=== PATIENT | female | born 1990 | race Two or more races ===

== ENCOUNTER 2024-10-28 11:36 | Outpatient (AMB) | payer MEDICAID, SELFPAY ==
[2024-10-28 12:06] VITALS: BP 107/66; PULSE 71; RESP 14; TEMP 36.9; O2SAT 99; BMI 31.6
--- NOTE | 2024-10-28 12:06 | OBCLNT_ITS ---
Vital Signs 10/28/24 12:06 Height 1.57 m Height Method Stated Weight 78.528 kg Weight Measurement Method Standing Scale BMI 31.6 BP 107/66 Blood Pressure Source Automatic Cuff Blood Pressure Location Left Upper Arm Position Sitting Respiration 14 Pulse 71 Pulse Source Monitor Temp 98.4 F Temp Source Oral Pulse Oximetry (%) 99 Oxygen Delivery Method Room Air Allergies/Home Meds Allergies & Medications Allergies No Known Allergies Allergy (Verified 10/28/24 12:07) Medication Reconciliation No Known Home Medications 10/28/24 [History Confirmed 10/28/24] Intake Visit Data Collection New Patient or Established: New Patient (never been to [facility]) Reason for Visit:: Transfer of care from [facility], follow-up at 20 weeks and 6 days gestation Seen by Clinical Staff ONLY (RN/MA): No Visitor Services Associate Required: No Do You Feel Safe at Home: Yes Authorities Contacted: N/A PCP or OBGYN visit in last 3 months: Yes Hx Now: Yes Are you currently on any form of Control: No Last menstrual period: 06/04/24 Pain Present Currently: No Pain Scale Used: Nieto-Connell/Numerical Pain scale:: 0 Smoking Status Smoking Status: Never smoker Questionnaires Covid-19 Vaccine Questionnaire Has patient been vacinated for Covid-19 Have you been vacinated for Covid-19: Yes PHQ-9 PHQ-2 Over the last 2 weeks, how often have you been bothered by any of the following problems? 1. Little interest or pleasure in doing things: not at all 2. Feeling down, depressed, or hopeless: not at all Total score: 0 PHQ-9 3. Trouble falling or staying asleep, or sleeping too much: Not at all 4. Feeling tired or having little energy: Not at all 5. Poor appetite or overeating: Not at all 6. Feeling bad about yourself - or that you are a failure or have let yourself or your family down: Not at all 7. Trouble concentrating on things, such as reading the newspaper or watching television: Not at all 8. Moving or speaking so slowly that other people could have noticed? - Or the opposite - being so fidgety or restless that you have been moving around a lot more than usual: not at all 9. Thoughts that you would be better off or of hurting yourself in some way: Not at all Total score: 0 Source: Developed by Drs. Rancho Huertas, Ileana Monreal, Bipin Torres and colleagues, with an educational laverne from [employer]. Depression screen completed yes Social History Living Situation History Marital Status: Lives With: Family Housing: House Tobacco History Smoking Status: Never smoker Second Hand Smoke Exposure: No Alcohol History Alcohol Intake: Never Domestic Abuse History Do You Feel Safe at Home: Yes Past Medical History Past Medical History Have you ever been diagnosed with any of the following: Neurological Problems Cerebrovascular Accident (CVA): No Transient Ischemic Attacks (TIA): No Dementia: No Alzheimer's Disease: No Brain Tumor: No Seizures: No Guillain-Tacoma Syndrome: No Cardiology Problems Myocardial Infarction: No Cardiac Arrhythmia: No Atrial Fibrillation: No Angina: No Hypertension: No Respiratory Problems Chronic Obstructive Pulmonary Disease (COPD): No Asthma: No Bronchitis: No Tuberculosis: No Hx Cough: No Cough: No Wheezing: No Chest Deformities: No Smoking: No Smoking Cessation Counseling: No Smoking Exposure: No Tobacco Use: No Clubbing: No Stomache/Intestinal Problems Liver Cancer: No Hepatitis: No Cirrhosis: No Pancreatic Cancer: No Pancreatitis: No Genital/Urinary Problems Chronic Kidney Disease: No Renal Disease: No Kidney Stones: No Reproductive Problems Breast Cancer: No Endometriosis: No Fibroids: No Genital Herpes: No Gonorrhea: No Pelvic Inflammatory Disease: No Polycystic Ovarian Syndrome: No Previous Pregnancies: Yes Syphilis: No Uterine Prolapse: No Musculoskeletal Problems Muscular Dystrophy: No Myasthenia Gravis: No Marfan's Syndrome: No Bone Cancer: No Arthritis: No Head,Eye,Nose,Throat Problems Cataracts: No Glaucoma: No Blind: No Retinal Detachment: No Endocrine Problems Diabetes Mellitus Type 1: No Diabetes Mellitus Type 2: No Thyroid Cancer: No Parathyroid Disease: No Pituitary Disease: No Systemic Lupus Erythematosus: No Syndrome of Inappropriate Antidiuretic Hormone: No Adrenal Disease: No Graves' Disease: No Blood Problems Anemia: No Leukemia: No Hemophilia: No Thalassemia: No Sickle Cell Disease: No Clotting Problems: No Psychologic Problems Schizophrenia: No Recreational Drug Use: No Bipolar Disorder: No Depression: No Anxiety: No Behavior Problems: No Other Problems Hospitalization: No Autoimmune Disease: No Down Syndrome: No Autism: No Developmental Delay: No Falls: No Blood Transfusions: No Blood Transfusion Reaction: No Anesthesia Reactions: No Surgical History Angioplasty: No Appendectomy: No Bariatric Surgery: No Breast Surgery: No Cancer Surgery: No Carotid Endarterectomy: No History of Present Illness HPI Narrative Gardenia Dumas, a 34-year-old at 20 weeks and 6 days gestation, presents for transfer of care from [facility]. Her last menstrual period was on 06-04-2024, with an estimated due date of 03-11-2025. She reports a history of regular monthly menses lasting 28 days. Her first positive test was on December 26, 2024. The patient's obstetrical history includes two full-term deliveries: a vaginal delivery at 41 weeks and 3 days in 2019, and a classical section in 2021 due to a transverse lie with premature rupture of membranes. She also reports one previous . Currently, Gardenia states that everything is going well so far with her . She is taking vitamins as prescribed. Gardenia mentions that her last ultrasound was performed in August at 12-13 weeks gestation. At that time, there was a concern about a low-lying placenta, and she was advised to avoid intercourse. She is awaiting a detailed anatomy ultrasound to reassess the placental position and evaluate the previous scar. The patient reports no specific complaints or symptoms at this time. She has relocated from [place] to [place] due to the previous clinic's inability to accommodate more patients. Surgical History - Classical section in 2021 Medications and Supplements - vitamins Social History - Living Situation: Lives in [place] OB Initial Visit OB Flowsheet OB Flowsheet Initial Weight: Not Recorded Date -?-?-?-?-?-?-?-?-?-?-?-?- EGA Weight Edema CTX Effacement BP Fundal ht Pres Dilation Effacement Station Visit Note Alb Glu FHR Mov 10/28/24 -?-?-?-?-?-?-?-?-?-?-?-?- 20w 4d 78.528 kg 107/66 34-y ear-old at 20 weeks and 6 days gestation, presents for transfer of care from [facility]. - Ultrasound (09/04/2024): - First trimester gestation - Single gestational sac - Gestational age: 12 weeks and 6 days . Plan: - Order anatomy ultrasound at [facility] in [place] between 20-22 weeks gestation - Assess anatomy and previous ce sarean section scar - Evaluate placental position - Review lab results from previous clini c once patient brings records - Schedule glucose tolerance test for di abetes screening at next appointment - Discuss delivery options: - Inform patient that current hospital does not permit - If vaginal delivery desired, plan to continue care until 35-36 weeks, then transfer to [facility] - Advise on sexual activity based on [facility] ultrasound results: - If placenta remains low, avoid inter course - If placental position resolves, valentin r for sexual activity - Continue vitamins 145 active Menstrual History Menstrual reliability: definite Flow: normal Menstrual regularity: regular Monthly: Yes Age at menarche: 9 On control pills at conception: No Associated symptoms (LMP): Denies amenorrhea, nausea, vomiting, fatigue, breast tenderness, urinary frequency, irritability, bloating or other OB History : 4 Hx Total # of Abortions (Spontaneous & Elective): 1 # of Living Children: 2 Infection History & Risk Evaluation History of STDs: none Genetic Screening & History Genetic Screening/Teratology Counseling - Includes patient, baby's father, or anyone in either family with: 1. Patient's age 35 years or older as of estimated date of delivery: No 2. Thalassemia (Qatari, Kittitian, Mediterranean, or Background); MCV less than 80: No 3. Neural Tube Defect (Meningomyelocele, Spina Bifida, or Anencephaly): No 4. Congenital Heart Defect: No 5. Down Syndrome: No 6. Kaden-Sachs (Ashkenazi Yazdanism, Cajun, Mauritian Anguillan): No 7. Taniya Disease (Ashkenazi Yazdanism): No 8. Familial Dysautonomia (Ashkenazi Yazdanism): No 9. Sickle Cell Disease or Trait (): No 10. Hemophilia or other blood disorders: No 11. Muscular Dystrophy: No 12. Cystic Fibrosis: No 13. Newport's Chorea: No 14. Mental Retardation/Autism: No 15. Other inherited genetic or chromosomal disorder: No 16. Maternal Metabolic Disorder (EG,TYPE 1 Diabetes, PKU): No 17. Patient or baby's father had a child with defects not listed above: No 18. Recurrent loss or a stillbirth: No 19. Medications (including supplements, vitamins, herbs or otc drugs)/illicit/recreational drugs/alcohol since last menstrual period: No 20. Any other: No Infection History 1. Live with someone with TB or exposed to TB: No 2. Rash or viral illness since last menstrual period: No 3. Hepatitis B,C: No Other (see comments) Source: [employer] Review of Systems Review of Systems Systems Reviewed: All systems reviewed, normal except as documented Constitutional Constitutional: Denies fatigue Gastrointestinal Gastrointestinal: Denies bloating, Denies nausea and Denies vomiting Genitourinary Genitourinary: Denies amenorrhea and Denies urinary frequency Psychiatric Psychiatric: Denies irritability Endocrine Endocrine: Denies fatigue Exam General Limitations: no limitations General Appearance: alert, in no apparent distress, comfortable, cooperative, healthy appearing, well developed and well groomed Head Head exam: atraumatic, normocephalic and normal inspection Chest Chest inspection: Present normal inspection and symmetric chest wall rise Abdominal Abdominal exam: Present soft and normal bowel sounds Psych Psychiatric exam: Present normal affect and normal mood Skin Skin exam: Present warm, dry, intact and normal color Assessment & Plan Diagnosis / Problem List (1) Maternal care for low transverse scar from previous delivery: Status: Acute (2) Supervision of high risk , unspecified, second trimester: Status: Acute Plan Gardenia Madseno, 34-year-old at 20 weeks 6 days gestation, presenting for transfer of care from [facility] with SUN 03-11-2025. , 20 weeks 6 days gestation Assessment: Patient is a 34-year-old at 20 weeks 6 days gestation based on LMP of 06-04-2024, with SUN confirmed as 03-11-2025. History of one prior classical section in 2021 and one vaginal delivery at 41 weeks 3 days in 2019. First trimester ultrasound on 09-04-2024 showed single gestational sac measuring 12 weeks 6 days. Current heart rate is 145 bpm, which is within normal range. Patient reports is progressing well. Plan: - Order anatomy ultrasound at [facility] between 20-22 weeks gestation - Assess anatomy and previous section scar - Evaluate placental position - Review lab results from previous clinic once patient brings records - Schedule glucose tolerance test for diabetes screening at next appointment - Discuss delivery options: - Inform patient that current hospital does not permit - If vaginal delivery desired, plan to continue care until 35-36 weeks, then transfer to [facility] - Advise on sexual activity based on upcoming ultrasound results: - If placenta remains low, avoid intercourse - If placental position resolves, clear for sexual activity - Continue vitamins Additional Plan Follow Up: 2 Weeks Office Procedures OB Clinic LOC & Office Proc's Nursing/Assessment Patient Status: Initial/New Patient OB Clinic Nursing Assessment: Medication Reconciliation, Update PMH in EMR and Vital Signs OB Clinic Coordination of Care: Complex Care and Chronic Disease 1-5, Consent,records obtained, informed consent, Education Simp Pt/Fam, Lab and Imaging orders, Results/Orders obtained and Staff clarify orders Special Needs: Heart tones New Patient Charge New Patient Point Assignment: 1134 Bedside Ultrasounds US Transabdominal >14 weeks at bedside: Yes
== END 2024-10-28 12:18 | disposition home or self-care (01) ==
LOC: HODSOBC 11:36
PROVIDERS: Supervising Provider Obstetrics & Gynecology; Visit Provider Obstetrics & Gynecology
DX: O09.292 Supervision of pregnancy with other poor reproductive or obstetric history, second trimester (principal); O34.211 Maternal care for low transverse scar from previous cesarean delivery; Z3A.20 20 weeks gestation of pregnancy; Z87.59 Personal history of other complications of pregnancy, childbirth and the puerperium
CPT/HCPCS: 76805; 99214; G0463

== ENCOUNTER 2024-11-26 13:01 | Outpatient (AMB) | payer MEDICAID, SELFPAY ==
[2024-11-26 13:22] VITALS: BP 107/61; PULSE 58; RESP 14; TEMP 36.5; O2SAT 98; BMI 32.4
--- NOTE | 2024-11-26 13:22 | OBCLNT_ITS ---
Vital Signs 11/26/24 13:22 Height 1.57 m Height Method Stated Weight 80.002 kg Weight Measurement Method Standing Scale BMI 32.4 BP 107/61 Blood Pressure Source Automatic Cuff Blood Pressure Location Right Upper Arm Position Sitting Respiration 14 Pulse 58 L Pulse Source Monitor Temp 97.7 F Temp Source Oral Pulse Oximetry (%) 98 Oxygen Delivery Method Room Air Allergies/Home Meds Allergies & Medications Allergies No Known Allergies Allergy (Verified 11/26/24 13:23) Medication Reconciliation clotrimazole 1 % vaginal cream (Gyne-Lotrimin 7) 1 appful vaginal QHS 7 days #45 grams 11/26/24 [Rx] Intake Visit Data Collection New Patient or Established: Established Patient (seen at [facility] within 3 years) Reason for Visit:: CARE Seen by Clinical Staff ONLY (RN/MA): No Refrigeration Engine Operator Required: No Do You Feel Safe at Home: Yes Authorities Contacted: N/A PCP or OBGYN visit in last 3 months: Yes Hx Now: Yes Are you currently on any form of Control: No Pain Present Currently: No Pain Scale Used: Nieto-Connell/Numerical Pain scale:: 0 Smoking Status Smoking Status: Never smoker Questionnaires Covid-19 Vaccine Questionnaire Has patient been vacinated for Covid-19 Have you been vacinated for Covid-19: Yes PHQ-9 PHQ-2 Over the last 2 weeks, how often have you been bothered by any of the following problems? 1. Little interest or pleasure in doing things: not at all 2. Feeling down, depressed, or hopeless: not at all Total score: 0 PHQ-9 3. Trouble falling or staying asleep, or sleeping too much: Not at all 4. Feeling tired or having little energy: Not at all 5. Poor appetite or overeating: Not at all 6. Feeling bad about yourself - or that you are a failure or have let yourself or your family down: Not at all 7. Trouble concentrating on things, such as reading the newspaper or watching television: Not at all 8. Moving or speaking so slowly that other people could have noticed? - Or the opposite - being so fidgety or restless that you have been moving around a lot more than usual: not at all 9. Thoughts that you would be better off or of hurting yourself in some way: Not at all Total score: 0 Source: Developed by Drs. Rancho Huertas, Ileana Monreal, Bipin Torres and colleagues, with an educational laverne from [employer]. 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 - Patient transferred care from [facility]. - This is her second visit to this clinic; first visit was at 20 weeks and 6 days gestation. - Patient reports experiencing itchiness in the genital area. - No visible signs of infection noted by patient - No vaginal discharge reported - Patient has not tried any nepj-pix-cfeeici creams for relief - Patient denies any other complaints or concerns. No contractions/ LOF/VB, reports good FM No MARS/VC/RUQ/Epig pain Care OB Visit Log OB Flowsheet Initial Weight: Not Recorded Date -?-?-?-?-?-?-?-?-?-?-?-?- EGA Weight BP Alb Glu CTX Pres Fundal ht FHR Mov Dilation Station Effacement Hx Notes Visit Note 10/28/24 -?-?-?-?-?-?-?-?-?-?-?-?- 20w 4d 78.528 kg 107/66 145 active 34-year-old at 20 weeks and 6 days gestation, presents for transfer of care from [facility]. - Ultrasound (09/04/2024): - First trimester gestation - Single gestational sac - Gestational age: 12 weeks and 6 days . Plan: - Order anatomy ultrasound at [facility] between 20-22 weeks gestation - Assess anatomy and previous ce sarean section scar - Evaluate placental position - Review lab results from previous clini c once patient brings records - Schedule glucose tolerance test for di abetes screening at next appointment - Discuss delivery options: - Inform patient that current hospital does not permit - If vaginal delivery desired, plan to continue care until 35-36 weeks, then transfer to [facility] - Advise on sexual activity based on [facility] [place] results: - If placenta remains low, avoid inter course - If placental position resolves, valentin desai for sexual activity - Continue vitamins 11/26/24 -?-?-?-?-?-?-?-?-?-?-?-?- 24w 5d 80.002 kg 107/61 at 24 weeks and 6 days gestation, presents for routine care. Reports pruritus in genital area without discharge or OTC treatment. FM+. Transferred care from [place], this is second visit. Awaiting MFM ultrasound. FHT 145 bpm. Plan: Glucose tolerance test (fasting) [facility]ifungal cream to [facility] [place] Await MFM ultrasound results FU in 4 weeks precautions SUN Calculator Estimated Delivery Date Method Current WG Current Estimate 03/13/25 Ultrasound #1 25w 1d Other Estimates 03/11/25 LMP (Certain) 25w 3d Exam General General Appearance: alert, in no apparent distress and healthy appearing Head Head exam: atraumatic Neck Neck exam: Present normal inspection and trachea midline Chest Chest inspection: Present normal inspection and symmetric chest wall rise External exam: Present normal external exam; Absent tenderness Neuro Neurological exam: Present oriented X3 Psych Psychiatric exam: Present normal affect and normal mood Office Procedures OB Clinic LOC & Office Proc's Nursing/Assessment Patient Status: Established Patient OB Clinic Nursing Assessment: Medication Reconciliation, Update PMH in EMR and Vital Signs OB Clinic Coordination of Care: Complex Care and Chronic Disease 1-5, Consent,records obtained, informed consent, Education Simp Pt/Fam, Lab and Imaging orders, Results/Orders obtained and Staff clarify orders Special Needs: Heart tones Established Patient Charge Established Patient Point Assignment: 135 Established Patient Point Charge: EP Level 4 (120-155) Assessment & Plan Diagnosis / Problem List (1) Supervision of high risk , unspecified, second trimester: Status: Acute (2) Maternal care for low transverse scar from previous delivery: Status: Acute Plan Problem List - , 24 weeks and 6 days gestation - History of section - Pruritus of genital region Assessment - Intrauterine at 24 weeks and 6 days gestation - 4, para 2012 - History of previous section - heart rate 145 bpm, within normal limits - Patient reports itchiness in genital area without signs of infection or discharge - Maternal serum screening completed in August 2020 - Anatomy ultrasound ordered at previous appointment - Awaiting MFM ultrasound results Plan - Schedule glucose tolerance test (patient to fast before test) - Await MFM ultrasound results from [facility] - Prescribe antifungal cream for perineal itching, [facility] - Follow up visit in 4 weeks - Provide patient with copies of lab results Educated the patient on labor signs, including regular contractions, lower back pain, and changes in vaginal discharge. Advised avoiding heavy lifting and getting adequate rest. Instructed to contact the office immediately if any signs occur. Discussed the importance of a balanced diet rich in folic acid, iron, and calcium, and provided a list of recommended and to-avoid foods. Emphasized avoiding high-sugar foods to reduce gestational diabetes risk. Encouraged hydration and frequent, small meals for energy..
== END 2024-11-26 13:29 | disposition home or self-care (01) ==
LOC: HODSOBC 13:01
PROVIDERS: Supervising Provider Obstetrics & Gynecology; Visit Provider Obstetrics & Gynecology
DX: O09.292 Supervision of pregnancy with other poor reproductive or obstetric history, second trimester (principal); Z3A.24 24 weeks gestation of pregnancy; O34.211 Maternal care for low transverse scar from previous cesarean delivery; O26.892 Other specified pregnancy related conditions, second trimester; L29.3 Anogenital pruritus, unspecified
CPT/HCPCS: 99214; G0463

== ENCOUNTER 2024-12-27 11:06 | Outpatient (AMB) | payer MEDICAID, SELFPAY ==
[2024-12-27 11:16] VITALS: BP 110/66; PULSE 62; RESP 17; TEMP 36.4; O2SAT 98; BMI 33.3
--- NOTE | 2024-12-27 11:16 | OBCLNT_ITS ---
Vital Signs 12/27/24 11:16 Height 1.57 m Height Method Measured Weight 82.157 kg Weight Measurement Method Standing Scale BMI 33.3 BP 110/66 Blood Pressure Source Automatic Cuff Blood Pressure Location Right Upper Arm Position Sitting Respiration 17 Pulse 62 Pulse Source Monitor Temp 97.5 F Temp Source Temporal Artery Scan Pulse Oximetry (%) 98 Oxygen Delivery Method Room Air Allergies/Home Meds Allergies & Medications Allergies No Known Allergies Allergy (Verified 01/09/25 13:58) Medication Reconciliation vits no.126-ferrous fum 28 mg iron-folic acid 800 mcg tablet (Classic ) tab PO 12/27/24 [History Confirmed 01/09/25] blood sugar diagnostic (Blood Glucose Test strips) #10 ea 01/31/25 [Rx] blood-glucose meter #1 ea 01/31/25 [Rx] lancets #100 ea 01/31/25 [Rx] Intake Visit Data Collection New Patient or Established: Established Patient (seen at [facility] within 3 years) Reason for Visit:: OBC Seen by Clinical Staff ONLY (RN/MA): No Supervisor Braiding Required: No Do You Feel Safe at Home: Yes Authorities Contacted: N/A PCP or OBGYN visit in last 3 months: Yes Hx Now: Yes Are you currently on any form of Control: No Pain Present Currently: No Pain Scale Used: Nieto-Connell/Numerical Pain scale:: 0 Smoking Status Smoking Status: Never smoker Questionnaires Covid-19 Vaccine Questionnaire Has patient been vacinated for Covid-19 Have you been vacinated for Covid-19: No PHQ-9 PHQ-2 Over the last 2 weeks, how often have you been bothered by any of the following problems? 1. Little interest or pleasure in doing things: not at all 2. Feeling down, depressed, or hopeless: not at all Total score: 0 PHQ-9 3. Trouble falling or staying asleep, or sleeping too much: Not at all 4. Feeling tired or having little energy: Not at all 5. Poor appetite or overeating: Not at all 6. Feeling bad about yourself - or that you are a failure or have let yourself or your family down: Not at all 7. Trouble concentrating on things, such as reading the newspaper or watching television: Not at all 8. Moving or speaking so slowly that other people could have noticed? - Or the opposite - being so fidgety or restless that you have been moving around a lot more than usual: not at all 9. Thoughts that you would be better off or of hurting yourself in some way: Not at all Total score: 0 If you checked off any problems, how difficult have these problems made it for you to do your work, take care of things at home, or get along with other people?: not difficult at all Source: Developed by Drs. Rancho Huertas, Ileana Monreal, Bipin Torres and colleagues, with an educational laverne from [employer]. 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. - Ultrasound (09/04/2024): - First trimester gestation - Single gestational sac - Gestational age: 12 weeks and 6 days . Plan: - Order anatomy ultrasound at [facility] between 20-22 weeks gestation - Assess anatomy and previous ce sarean section scar - Evaluate placental position - Review lab results from previous clini c once patient brings records - Schedule glucose tolerance test for di abetes screening at next appointment - Discuss delivery options: - Inform patient that current hospital does not permit - If vaginal delivery desired, plan to continue care until 35-36 weeks, then transfer to [place] or [place] - Advise on sexual activity based on [facility] [place] [place] results: - If placenta remains low, avoid inter course - If placental position resolves, valentin desai for sexual activity - Continue vitamins 11/26/24 -?-?-?-?-?-?-?-?-?-?-?-?- 24w 5d 80.002 kg 107/61 at 24 weeks and 6 days gestation, presents for routine care. Reports pruritus in genital area without discharge or OTC treatment. FM+. Transferred care from [place], this is second visit. Awaiting MFM ultrasound. FHT 145 bpm. Plan: Glucose tolerance test (fasting) Antifungal cream to [facility] Await MFM ultrasound results FU in 4 weeks precautions 12/27/24 -?-?-?-?-?-?-?-?-?-?-?-?- 29w 1d 82.157 kg 110/66 occasional cephalic 29 145 at 29w1d, transferred from [place]. Recent vaginitis treated with clotrimazole. Labs: Hgb 12.4, Hct 39.1, platelets 145. Abnormal 1h GTT at 155. MFM US pending. Plan: Schedule 3h GTT, monitor platelets, await MFM results. SUN Calculator Estimated Delivery Date Method Current WG Current Estimate 03/13/25 Ultrasound #1 34w 3d Other Estimates 03/11/25 LMP (Certain) 34w 5d Office Procedures OB Clinic LOC & Office Proc's Nursing/Assessment Patient Status: Established Patient OB Clinic Nursing Assessment: Medication Reconciliation, Update PMH in EMR and Vital Signs OB Clinic Coordination of Care: Complex Care and Chronic Disease 1-5, Education Complex Pt/Fam, Consent,records obtained, informed consent, Lab and Imaging orders and Staff clarify orders Special Needs: Heart tones Established Patient Charge Established Patient Point Assignment: 135 Established Patient Point Charge: EP Level 4 (120-155) Assessment & Plan Diagnosis / Problem List (1) Gestational diabetes: Status: Acute (2) Supervision of high risk , unspecified, second trimester: Status: Acute (3) Maternal care for low transverse scar from previous delivery: Status: Acute
== END 2024-12-27 11:30 | disposition home or self-care (01) ==
LOC: HODSOBC 11:06
PROVIDERS: PCP Obstetrics & Gynecology; Referring Provider Obstetrics & Gynecology; Supervising Provider Obstetrics & Gynecology; Visit Provider Obstetrics & Gynecology
DX: O09.293 Supervision of pregnancy with other poor reproductive or obstetric history, third trimester (principal); O34.211 Maternal care for low transverse scar from previous cesarean delivery; O09.893 Supervision of other high risk pregnancies, third trimester; O24.419 Gestational diabetes mellitus in pregnancy, unspecified control; Z3A.29 29 weeks gestation of pregnancy
CPT/HCPCS: 99214; G0463

== ENCOUNTER 2025-01-09 13:55 | Outpatient (AMB) | payer MEDICAID, SELFPAY ==
--- NOTE | 2025-01-09 13:58 | OBCLNT_ITS ---
Allergies/Home Meds Allergies & Medications Allergies No Known Allergies Allergy (Verified 01/09/25 13:58) Medication Reconciliation vits no.126-ferrous fum 28 mg iron-folic acid 800 mcg tablet (Classic ) tab PO 12/27/24 [History Confirmed 01/09/25] Intake Visit Data Collection New Patient or Established: Established Patient (seen at [facility] within 3 years) Reason for Visit:: LAB RESULTS / TELE MED Consent obtained for Telemed Visit: Yes Seen by Clinical Staff ONLY (RN/MA): No Motion Picture Operator Required: No Do You Feel Safe at Home: Yes Authorities Contacted: N/A PCP or OBGYN visit in last 3 months: Yes Date of Last PCP or OBGYN visit: 11/26/24 Hx Now: Yes Are you currently on any form of Control: No Pain Present Currently: No Pain Scale Used: Nieto-Connell/Numerical Pain scale:: 0 Smoking Status Smoking Status: Never smoker For Telemed visit only Telemed Video/Phone Visit: Yes Verbal consent obtained for Telemed visit?: Yes Verbal Consent witness name: BENJAMIN TODD Telemed Video/Phone visit w/Clinical Staff: 21-30 min Questionnaires Covid-19 Vaccine Questionnaire Has patient been vacinated for Covid-19 Have you been vacinated for Covid-19: No PHQ-9 PHQ-2 Over the last 2 weeks, how often have you been bothered by any of the following problems? 1. Little interest or pleasure in doing things: not at all 2. Feeling down, depressed, or hopeless: not at all Total score: 0 PHQ-9 3. Trouble falling or staying asleep, or sleeping too much: Not at all 4. Feeling tired or having little energy: Not at all 5. Poor appetite or overeating: Not at all 6. Feeling bad about yourself - or that you are a failure or have let yourself or your family down: Not at all 7. Trouble concentrating on things, such as reading the newspaper or watching television: Not at all 8. Moving or speaking so slowly that other people could have noticed? - Or the opposite - being so fidgety or restless that you have been moving around a lot more than usual: not at all 9. Thoughts that you would be better off or of hurting yourself in some way: Not at all Total score: 0 If you checked off any problems, how difficult have these problems made it for you to do your work, take care of things at home, or get along with other people?: not difficult at all Source: Developed by Drs. Rancho Huertas, Ileana Monreal, Bipin Torres and colleagues, with an educational lvaerne from [employer]. 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 She had a previous glucose test with a result of 155 mg/dL, which was considered high. Following this abnormal result, she was instructed to complete a 3-hour glucose tolerance test. The patient reports that she completed the 3-hour glucose tolerance test at [facility] on the previous Monday. She confirms adherence to the recommended follow-up testing as instructed during her last visit. No specific symptoms or complaints related to the glucose abnormality were mentioned during this interaction. She has a history of elevated glucose level of 155 mg/dL on a previous test. The patient is currently taking Metformin 200 mg. Care OB Visit Log OB Flowsheet Initial Weight: Not Recorded Date -?-?-?-?-?-?-?-?-?-?-?-?- EGA Weight BP Alb Glu CTX Pres Fundal ht FHR Mov Dilation Station Effacement Hx Notes Visit Note 10/28/24 -?-?-?-?-?-?-?-?-?-?-?-?- 20w 4d 78.528 kg 107/66 145 active 34-year-old at 20 weeks and 6 days gestation, presents for transfer of care from [facility]. - Ultrasound (09/04/2024): - First trimester gestation - Single gestational sac - Gestational age: 12 weeks and 6 days . Plan: - Order anatomy ultrasound at [facility] between 20-22 weeks gestation - Assess anatomy and previous ce sarean section scar - Evaluate placental position - Review lab results from previous clini c once patient brings records - Schedule glucose tolerance test for di abetes screening at next appointment - Discuss delivery options: - Inform patient that current hospital does not permit - If vaginal delivery desired, plan to continue care until 35-36 weeks, then transfer to [facility] or [place] - Advise on sexual activity based on [facility] ultrasound results: - If placenta remains low, avoid inter course - If placental position resolves, valentin r for sexual activity - Continue vitamins 11/26/24 -?-?-?-?-?-?-?-?-?-?-?-?- 24w 5d 80.002 kg 107/61 at 24 weeks and 6 days gestation, presents for routine care. Reports pruritus in genital area without discharge or OTC treatment. FM+. Transferred care from [place], this is second visit. Awaiting MFM ultrasound. FHT 145 bpm. Plan: Glucose tolerance test (fasting) Antifungal cream to [facility] Await MFM ultrasound results FU in 4 weeks precautions SUN Calculator Estimated Delivery Date Method Current WG Current Estimate 03/13/25 Ultrasound #1 31w 4d Other Estimates 03/11/25 LMP (Certain) 31w 6d Exam Narrative Physical exam: Televisit, no exam Office Procedures OB Clinic LOC & Office Proc's Nursing/Assessment Patient Status: Established Patient OB Clinic Nursing Assessment: Medication Reconciliation, Update PMH in EMR and Vital Signs OB Clinic Coordination of Care: Complex Care and Chronic Disease 1-5, Consent,records obtained, informed consent, Education Simp Pt/Fam, Results/Orders obtained and Staff clarify orders Established Patient Charge Established Patient Point Assignment: 90 Telehealth If patient is seen using Teleconference methods, complete New/Est section, but DO NOT jt points only jt the correct Telemed visit type Telemed Phone/Video with patient at home & Dr,PA,POUND KEEPER: Yes Assessment & Plan Diagnosis / Problem List (1) Supervision of high risk , unspecified, second trimester: Status: Acute (2) Maternal care for low transverse scar from previous delivery: Status: Acute Plan Abnormal Glucose Test: - Initial glucose test result of 155 mg/dL, which is elevated. - Follow-up 3-hour glucose tolerance test completed at [facility] on previous Monday. - Results of 3-hour test not yet available in system. - Last result on file from December 10. Plan: - Contact [facility] to obtain results of the 3-hour glucose tolerance test. - Call patient back to discuss results once obtained.
== END 2025-01-09 14:03 | disposition home or self-care (01) ==
LOC: HODSOBC 13:55
PROVIDERS: PCP Obstetrics & Gynecology; Referring Provider Obstetrics & Gynecology; Supervising Provider Obstetrics & Gynecology; Visit Provider Obstetrics & Gynecology
DX: O09.293 Supervision of pregnancy with other poor reproductive or obstetric history, third trimester (principal); O34.211 Maternal care for low transverse scar from previous cesarean delivery; O09.893 Supervision of other high risk pregnancies, third trimester; O99.810 Abnormal glucose complicating pregnancy; Z3A.31 31 weeks gestation of pregnancy
CPT/HCPCS: 99212; G0463

== ENCOUNTER 2025-02-07 09:50 | Outpatient (AMB) | payer MEDICAID, SELFPAY ==
[2025-02-07 10:00] VITALS: BP 110/68; PULSE 69; RESP 17; TEMP 36.2; O2SAT 98; BMI 33.5
--- NOTE | 2025-02-07 10:00 | OBCLNT_ITS ---
Vital Signs 02/07/25 10:00 Height 1.57 m Height Method Measured Weight 82.611 kg Weight Measurement Method Standing Scale BMI 33.5 BP 110/68 Blood Pressure Source Automatic Cuff Blood Pressure Location Right Upper Arm Position Sitting Respiration 17 Pulse 69 Pulse Source Monitor Temp 97.2 F Temp Source Temporal Artery Scan Pulse Oximetry (%) 98 Oxygen Delivery Method Room Air Allergies/Home Meds Allergies & Medications Allergies No Known Allergies Allergy (Verified 02/07/25 10:01) Medication Reconciliation vits no.126-ferrous fum 28 mg iron-folic acid 800 mcg tablet (Classic ) tab PO 12/27/24 [History Confirmed 02/07/25] blood sugar diagnostic (Blood Glucose Test strips) #10 ea 01/31/25 [Rx Confirmed 02/07/25] blood-glucose meter #1 ea 01/31/25 [Rx Confirmed 02/07/25] lancets #100 ea 01/31/25 [Rx Confirmed 02/07/25] Intake Visit Data Collection New Patient or Established: Established Patient (seen at [facility] within 3 years) Reason for Visit:: OBC\GBS Consent obtained for Telemed Visit: No Seen by Clinical Staff ONLY (RN/MA): No Pacs Specialist Required: No Do You Feel Safe at Home: Yes Authorities Contacted: N/A PCP or OBGYN visit in last 3 months: Yes Date of Last PCP or OBGYN visit: 12/27/24 Hx Now: Yes Are you currently on any form of Control: No Pain Present Currently: No Pain Scale Used: Nieto-Connell/Numerical Pain scale:: 0 Smoking Status Smoking Status: Never smoker Questionnaires Covid-19 Vaccine Questionnaire Has patient been vacinated for Covid-19 Have you been vacinated for Covid-19: Yes PHQ-9 PHQ-2 Over the last 2 weeks, how often have you been bothered by any of the following problems? 1. Little interest or pleasure in doing things: not at all PHQ-9 8. Moving or speaking so slowly that other people could have noticed? - Or the opposite - being so fidgety or restless that you have been moving around a lot more than usual: not at all Source: Developed by Drs. Rancho Huertas, Ileana oMnreal, Bpiin Torres and colleagues, with an educational laverne from [employer]. 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 - Ultrasound (09/04/2024): - First trimester gestation - Single gestational sac - Gestational age: 12 weeks and 6 days . Plan: - Order anatomy ultrasound at [facility] between 20-22 weeks gestation - Assess anatomy and previous ce sarean section scar - Evaluate placental position - Review lab results from previous clini c once patient brings records - Schedule glucose tolerance test for di abetes screening at next appointment - Discuss delivery options: - Inform patient that current hospital does not permit - If vaginal delivery desired, plan to continue care until 35-36 weeks, then transfer to [facility] or [place] - Advise on sexual activity based on [facility] ultrasound results: - If placenta remains low, avoid inter course - If placental position resolves, valentin r for sexual activity - Continue vitamins 11/26/24 -?-?-?-?-?-?-?-?-?-?-?-?- 24w 5d 80.002 kg 107/61 at 24 weeks and 6 days gestation, presents for routine care. Reports pruritus in genital area without discharge or OTC treatment. FM+. Transferred care from [place], this is second visit. Awaiting [facility] ultrasound. FHT 145 bpm. Plan: Glucose tolerance test (fasting) Antifungal cream to [facility] Await MFM ultrasound results FU in 4 weeks precautions 12/27/24 -?-?-?-?-?-?-?-?-?-?--?-?- 29w 1d 82.157 kg 110/66 occasional cephalic 29 145 at 29w1d, transferred from [place]. Recent vaginitis treated with clotrimazole. Labs: Hgb 12.4, Hct 39.1, platelets 145. Abnormal 1h GTT at 155. MFM US pending. Plan: Schedule 3h GTT, monitor platelets, await MFM results. 02/07/25 -?-?-?-?-?-?-?-?-?-?-?-?- 35w 1d 82.611 kg 110/68 absent breech 35 145 active at 35w1d with diet-controlled GDM, breech fetus, prior C/S, improved energy and wt loss; FHR WNL, placenta now anterior and clear of OS per 32w MFM. Plan: C/S scheduled 03/06 @ 12:30, GBS swab done, RX for glucose supplies, weekly visits, review glucose logs next visit, pt exploring transfer to [place]. SUN Calculator Estimated Delivery Date Method Current WG Current Estimate 03/13/25 Ultrasound #1 35w 1d Other Estimates 03/11/25 LMP (Certain) 35w 3d Expected Delivery Route/Plan Repeat scheduled for March 06, 2025 at 12:30 PM Specific Issue/Plans Laboratory, Imaging, and Diagnostic Test Results - [facility] Ultrasound (01/18/2025): - Gestational age: 32 weeks 0 days - Estimated weight: 1874 grams - Amniotic fluid: Normal - anatomy: Grossly normal - Placenta: Anterior, no evidence of previa - presentation: Shaun breech - Uterus and adnexa: Normal Notes Visit Date: 02/07/25 Last Updated by: Randal Denis MD Problem List - , 35 weeks and 1 day - Gestational diabetes mellitus - Breech presentation - Previous delivery - 4, para 2 Office Procedures OB Clinic LOC & Office Proc's Nursing/Assessment Patient Status: Established Patient OB Clinic Nursing Assessment: Medication Reconciliation, Update PMH in EMR and Vital Signs OB Clinic Coordination of Care: Complex Care and Chronic Disease 1-5, Consent,records obtained, informed consent, Education Simp Pt/Fam and Staff clarify orders Established Patient Charge Established Patient Point Assignment: 85 Established Patient Point Charge: EP Level 3 (80-115)
== END 2025-02-07 10:22 | disposition home or self-care (01) ==
LOC: HODSOBC 09:50
PROVIDERS: Supervising Provider Obstetrics & Gynecology; Visit Provider Obstetrics & Gynecology
DX: O09.893 Supervision of other high risk pregnancies, third trimester (principal); O24.410 Gestational diabetes mellitus in pregnancy, diet controlled; O32.1XX0 Maternal care for breech presentation, not applicable or unspecified; O09.293 Supervision of pregnancy with other poor reproductive or obstetric history, third trimester; O34.219 Maternal care for unspecified type scar from previous cesarean delivery; Z3A.35 35 weeks gestation of pregnancy; Z36.85 Encounter for antenatal screening for Streptococcus B
CPT/HCPCS: 99213; G0463

== ENCOUNTER 2025-02-14 11:00 | Outpatient (AMB) | payer MEDICAID, SELFPAY ==
--- NOTE | 2025-02-14 11:19 | OBCLNT_ITS ---
Vital Signs 02/14/25 11:20 Height 1.57 m Height Method Measured Weight 82.157 kg Weight Measurement Method Standing Scale BMI 33.3 BP 101/62 Blood Pressure Source Automatic Cuff Blood Pressure Location Right Upper Arm Position Sitting Respiration 17 Pulse 81 Pulse Source Monitor Temp 98.2 F Temp Source Temporal Artery Scan Pulse Oximetry (%) 97 Oxygen Delivery Method Room Air Allergies/Home Meds Allergies & Medications Allergies No Known Allergies Allergy (Verified 03/26/25 09:14) Medication Reconciliation vits no.126-ferrous fum 28 mg iron-folic acid 800 mcg tablet (Classic ) 1 tab PO QDAY 12/27/24 [History Confirmed 03/26/25] blood-glucose meter #1 ea 01/31/25 [Rx Confirmed 03/26/25] blood sugar diagnostic (Blood Glucose Test strips) #100 ea 02/11/25 [Rx Con firmed 03/26/25] lancets 21 gauge #100 ea 02/11/25 [Rx Confirmed 03/26/25] Intake Visit Data Collection New Patient or Established: Established Patient (seen at [facility] within 3 years) Reason for Visit:: OBC Consent obtained for Telemed Visit: No Seen by Clinical Staff ONLY (RN/MA): No Data Support Analyst Required: No Do You Feel Safe at Home: Yes Authorities Contacted: N/A PCP or OBGYN visit in last 3 months: Yes Date of Last PCP or OBGYN visit: 02/07/25 Hx Now: Yes Are you currently on any form of Control: No Pain Present Currently: No Pain Scale Used: Nieto-Connell/Numerical Pain scale:: 0 Smoking Status Smoking Status: Never smoker Questionnaires Covid-19 Vaccine Questionnaire Has patient been vacinated for Covid-19 Have you been vacinated for Covid-19: Yes PHQ-9 PHQ-2 Over the last 2 weeks, how often have you been bothered by any of the following problems? 1. Little interest or pleasure in doing things: not at all PHQ-9 3. Trouble falling or staying asleep, or sleeping too much: Not at all 4. Feeling tired or having little energy: Not at all 5. Poor appetite or overeating: Not at all 6. Feeling bad about yourself - or that you are a failure or have let yourself or your family down: Not at all 7. Trouble concentrating on things, such as reading the newspaper or watching television: Not at all 8. Moving or speaking so slowly that other people could have noticed? - Or the opposite - being so fidgety or restless that you have been moving around a lot more than usual: not at all 9. Thoughts that you would be better off or of hurting yourself in some way: Not at all If you checked off any problems, how difficult have these problems made it for you to do your work, take care of things at home, or get along with other people?: not difficult at all Source: Developed by Drs. Rancho Huertas, Ileana Monreal, Bipin Torres and colleagues, with an educational laverne from [email or web address]. 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 - Ultrasound (09/04/2024): - First trimester gestation - Single gestational sac - Gestational age: 12 weeks and 6 days . Plan: - Order anatomy ultrasound at [facility] between 20-22 weeks gestation - Assess anatomy and previous ce sarean section scar - Evaluate placental position - Review lab results from previous clini c once patient brings records - Schedule glucose tolerance test for di abetes screening at next appointment - Discuss delivery options: - Inform patient that current hospital does not permit - If vaginal delivery desired, plan to continue care until 35-36 weeks, then transfer to [facility] or [place] - Advise on sexual activity based on [facility] oming ultrasound results: - If placenta remains low, avoid inter course - If placental position resolves, valentin desai for sexual activity - Continue vitamins 11/26/24 -?-?-?-?-?-?-?-?-?-?-?-?- 24w 5d 80.002 kg 107/61 at 24 weeks and 6 days gestation, presents for routine care. Reports pruritus in genital area without discharge or OTC treatment. FM+. Transferred care from [place], this is second visit. Awaiting MFM ultrasound. FHT 145 bpm. Plan: Glucose tolerance test (fasting) Antifungal cream to [facility] Await MFM ultrasound results FU in 4 weeks precautions 12/27/24 -?-?-?-?-?-?-?-?-?-?-?-?- 29w 1d 82.157 kg 110/66 occasional cephalic 29 145 at 29w1d, transferred from [place]. Recent vaginitis treated with clotrimazole. Labs: Hgb 12.4, Hct 39.1, platelets 145. Abnormal 1h GTT at 155. MFM US pending. Plan: Schedule 3h GTT, monitor platelets, await MFM results. 02/07/25 -?-?-?-?-?-?-?-?-?-?-?-?- 35w 1d 82.611 kg 110/68 absent breech 35 145 active at 35w1d with diet-controlled GDM, breech fetus, prior C/S, improved energy and wt loss; FHR WNL, placenta now anterior and clear of OS per 32w MFM. Plan: C/S scheduled 03/06 @ 12:30, GBS swab done, RX for glucose supplies, weekly visits, review glucose logs next visit, pt exploring transfer to [place]. 02/14/25 -?-?-?-?-?-?-?-?-?-?-?-?- 36w 1d 82.157 kg 101/62 02/26/25 -?-?-?-?-?-?-?-?-?-?-?-?- 37w 6d 83.234 kg 110/68 absent breech 38 154 active The patient appears to be progressing normally in her with no reported complications or conc erns. - Scheduled for repeat on March 06, 2025 at 39 weeks gestation - Patient to check in at 10:00 AM, surge ry scheduled for 12:30 PM - NPO after midnight the night before quintero rgery - Preoperative procedures: change into g own, area cleaning, blood work - to be performed by Dr. Denis - Sutures will be absorbable, placed ins marianna the skin with edges joined by glue - Tape to be kept on incision site for 1 0 days, then removed by physician - Ljxg-cb-[id number] contact with baby possibl e after delivery, either with mother or father - Two-hour recovery period post-surgery before visitors allowed - Baby to room-in with mother if no comp lications arise SUN Calculator Estimated Delivery Date Method Current WG Current Estimate 03/13/25 Ultrasound #1 45w 5d Other Estimates 03/11/25 LMP (Certain) 46w 0d Expected Delivery Route/Plan Repeat scheduled for March 06, 2025 at 12:30 PM Specific Issue/Plans Laboratory, Imaging, and Diagnostic Test Results - [facility] Ultrasound (01/18/2025): - Gestational age: 32 weeks 0 days - Estimated weight: 1874 grams - Amniotic fluid: Normal - anatomy: Grossly normal - Placenta: Anterior, no evidence of previa - presentation: Shaun breech - Uterus and adnexa: Normal Notes Visit Date: 02/07/25 Last Updated by: Randal Denis MD Problem List - , 35 weeks and 1 day - Gestational diabetes mellitus - Breech presentation - Previous delivery - 4, para 2 Assessment & Plan Diagnosis / Problem List (1) Gestational diabetes: Status: Acute (2) Maternal care for low transverse scar from previous delivery: Status: Acute (3) Supervision of high risk , unspecified, third trimester: Status: Acute Plan Problem List - , 23 weeks and 6 days gestation - Previous delivery - Rh-negative blood type - Intermittent nausea and vomiting Assessment 23 weeks and 6 days gestation with history of previous section presenting for routine visit. One-hour glucose tolerance test result of 107 mg/dL is normal, ruling out gestational diabetes. Patient reports intermittent nausea and vomiting related to food intake. heart rate of 168 bpm is within normal limits. Patient reports active movement with no concerning symptoms. Patient is employed at [employer] and due date is August 13 with planned delivery at 39 weeks (August 06 or later). Rhogam administration due at 28 weeks gestation. Plan - Schedule anatomy and placenta screening ultrasound with Daniel Pizano at [facility] (patient to call for appointment) - Rhogam shot at 28 weeks (4 weeks from current visit) - Schedule section for any weekday after August 06 (39 weeks gestation), approximately one week before August 13 due date - Provide work excuse note - patient can return to work briefly after Chong break (July 21) then be placed off work - Continue aspirin for 4 more weeks - Book section date in May when scheduling opens 1. Progress Reviewed gestational age (23 weeks 6 days), growth, and heart rate (168 bpm, normal). Planned frequent visits (every 2 weeks until 36 weeks, then weekly). 2. Instructed patient to monitor movements and report decreases immediately. 3. Testing Counseled on routine third-trimester labs per guidelines. Discussed potential need for ultrasound or monitoring based on risk factors (anatomy and placenta screening ultrasound scheduled). 4. Preeclampsia Precaution Educated on preeclampsia signs: severe headache, vision changes, right upper quadrant pain, sudden swelling. Advised urgent reporting of symptoms and discussed blood pressure monitoring if high risk. 5. Labor Precautions Reviewed labor signs: regular contractions, pelvic pressure, back pain, bleeding, or fluid leakage. Instructed to seek immediate care for these symptoms. 6. Lifestyle and Delivery Preparation Reinforced vitamins, nutrition, and safe activity. Discussed plan (repeat scheduled for 39 weeks, August 06 or after), pain management, and . Advised on labor preparation (e.g., hospital bag) and expectations. 7. Psychosocial Support Assessed emotional well-being and offered resources for mental health or parenting support.
[2025-02-14 11:20] VITALS: BP 101/62; PULSE 81; RESP 17; TEMP 36.8; O2SAT 97; BMI 33.3
== END 2025-02-14 11:51 | disposition home or self-care (01) ==
LOC: HODSOBC 11:00
PROVIDERS: Supervising Provider Obstetrics & Gynecology; Visit Provider Obstetrics & Gynecology
DX: O09.293 Supervision of pregnancy with other poor reproductive or obstetric history, third trimester (principal); O34.211 Maternal care for low transverse scar from previous cesarean delivery; O09.893 Supervision of other high risk pregnancies, third trimester; O24.410 Gestational diabetes mellitus in pregnancy, diet controlled; Z3A.36 36 weeks gestation of pregnancy; Z67.91 Unspecified blood type, Rh negative
CPT/HCPCS: 99214; G0463

== ENCOUNTER 2025-02-26 08:36 | Outpatient (AMB) | payer MEDICAID, SELFPAY ==
[2025-02-26 08:49] VITALS: BP 110/68; PULSE 14; RESP 64; TEMP 36.6; O2SAT 99; BMI 33.7
--- NOTE | 2025-02-26 08:49 | OBCLNT_ITS ---
Vital Signs 02/26/25 08:49 Height 1.57 m Height Method Stated Weight 83.234 kg Weight Measurement Method Standing Scale BMI 33.7 BP 110/68 Blood Pressure Source Automatic Cuff Blood Pressure Location Left Upper Arm Position Sitting Respiration 64 H Pulse 14 L Pulse Source Monitor Temp 98 F Temp Source Oral Pulse Oximetry (%) 99 Oxygen Delivery Method Room Air Allergies/Home Meds Allergies & Medications Allergies No Known Allergies Allergy (Verified 02/26/25 08:50) Medication Reconciliation vits no.126-ferrous fum 28 mg iron-folic acid 800 mcg tablet (Classic ) tab PO 12/27/24 [History Confirmed 02/26/25] blood-glucose meter #1 ea 01/31/25 [Rx Confirmed 02/26/25] blood sugar diagnostic (Blood Glucose Test strips) #100 ea 02/11/25 [Rx Confirmed 02/26/25] lancets 21 gauge #100 ea 02/11/25 [Rx Confirmed 02/26/25] Intake Visit Data Collection New Patient or Established: Established Patient (seen at [facility] within 3 years) Reason for Visit:: CARE Seen by Clinical Staff ONLY (RN/MA): No Physical Testing Supervisor Required: No Do You Feel Safe at Home: Yes Authorities Contacted: N/A PCP or OBGYN visit in last 3 months: Yes Hx Now: Yes Are you currently on any form of Control: No Pain Present Currently: No Pain Scale Used: Nieto-Connell/Numerical Pain scale:: 0 Smoking Status Smoking Status: Never smoker Questionnaires Covid-19 Vaccine Questionnaire Has patient been vacinated for Covid-19 Have you been vacinated for Covid-19: Yes PHQ-9 PHQ-2 Over the last 2 weeks, how often have you been bothered by any of the following problems? 1. Little interest or pleasure in doing things: not at all 2. Feeling down, depressed, or hopeless: not at all Total score: 0 PHQ-9 3. Trouble falling or staying asleep, or sleeping too much: Not at all 4. Feeling tired or having little energy: Not at all 5. Poor appetite or overeating: Not at all 6. Feeling bad about yourself - or that you are a failure or have let yourself or your family down: Not at all 7. Trouble concentrating on things, such as reading the newspaper or watching television: Not at all 8. Moving or speaking so slowly that other people could have noticed? - Or the opposite - being so fidgety or restless that you have been moving around a lot more than usual: not at all 9. Thoughts that you would be better off or of hurting yourself in some wa y: Not at all Total score: 0 Source: Developed by Drs. Rancho Huertas, Ileana Monreal, Bipin Torres and colleagues, with an educational laverne from [employer]. 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 - Ultrasound (09/04/2024): - First trimester gestation - Single gestational sac - Gestational age: 12 weeks and 6 days . Plan: - Order anatomy ultrasound at [facility] between 20-22 weeks gestation - Assess anatomy and previous ce sarean section scar - Evaluate placental position - Review lab results from previous clini c once patient brings records - Schedule glucose tolerance test for di abetes screening at next appointment - Discuss delivery options: - Inform patient that current hospital does not permit - If vaginal delivery desired, plan to continue care until 35-36 weeks, then transfer to [facility] or [place] - Advise on sexual activity based on [facility] oming ultrasound results: - If placenta remains low, avoid inter course - If placental position resolves, valentin desai for sexual activity - Continue vitamins 11/26/24 -?-?-?-?-?-?-?-?-?-?-?-?- 24w 5d 80.002 kg 107/61 at 24 weeks and 6 days gestation, presents for routine care. Reports pruritus in genital area without discharge or OTC treatment. FM+. Transferred care from [place], this is second visit. Awaiting MFM ultrasound. FHT 145 bpm. Plan: Glucose tolerance test (fasting) Antifungal cream to [facility] Await MFM ultrasound results FU in 4 weeks precautions 12/27/24 -?-?-?-?-?-?-?-?-?-?-?-?- 29w 1d 82.157 kg 110/66 occasional cephalic 29 145 at 29w1d, transferred from [place]. Recent vaginitis treated with clotrimazole. Labs: Hgb 12.4, Hct 39.1, platelets 145. Abnormal 1h GTT at 155. MFM US pending. Plan: Schedule 3h GTT, monitor platelets, await MFM results. 02/07/25 -?-?-?-?-?-?-?-?-?-?-?-?- 35w 1d 82.611 kg 110/68 absent breech 35 145 active at 35w1d with diet-controlled GDM, breech fetus, prior C/S, improved energy and wt loss; FHR WNL, placenta now anterior and clear of OS per 32w MFM. Plan: C/S scheduled 03/06 @ 12:30, GBS swab done, RX for glucose supplies, weekly visits, review glucose logs next visit, pt exploring transfer to [place]. 02/26/25 -?-?-?-?-?-?-?-?-?-?-?-?- 37w 6d 83.234 kg 110/68 absent breech 38 154 active The patient appears to be progressing normally in her with no reported complications or concerns. - Scheduled for repeat on March 06, 2025 at 39 weeks gestation - Patient to check in at 10:00 AM, surge ry scheduled for 12:30 PM - NPO after midnight the night before quintero nahid - Preoperative procedures: change into g own, area cleaning, blood work - to be performed by Dr. Denis - Sutures will be absorbable, placed ins marianna the skin with edges joined by glue - Tape to be kept on incision site for 1 0 days, then removed by physician - Qlsw-rm-jjsd contact with baby possibl e after delivery, either with mother or father - Two-hour recovery period post-surgery before visitors allowed - Baby to room-in with mother if no comp lications arise SUN Calculator Estimated Delivery Date Method Current WG Current Estimate 03/13/25 Ultrasound #1 38w 0d Other Estimates 03/11/25 LMP (Certain) 38w 2d Expected Delivery Route/Plan Repeat scheduled for March 06, 2025 at 12:30 PM Specific Issue/Plans Laboratory, Imaging, and Diagnostic Test Results - [facility] Ultrasound (01/18/2025): - Gestational age: 32 weeks 0 days - Estimated weight: 1874 grams - Amniotic fluid: Normal - anatomy: Grossly normal - Placenta: Anterior, no evidence of previa - presentation: Shaun breech - Uterus and adnexa: Normal Notes Visit Date: 02/07/25 Last Updated by: Randal Denis MD Problem List - , 35 weeks and 1 day - Gestational diabetes mellitus - Breech presentation - Previous delivery - 4, para 2 Office Procedures OB Clinic LOC & Office Proc's Nursing/Assessment Patient Status: Established Patient OB Clinic Nursing Assessment: Medication Reconciliation, Update PMH in EMR and Vital Signs OB Clinic Coordination of Care: Complex Care and Chronic Disease 1-5, Consent,records obtained, informed consent, Education Simp Pt/Fam, Lab and Imaging orders, Results/Orders obtained and Staff clarify orders Special Needs: Heart tones Established Patient Charge Established Patient Point Assignment: 135 Established Patient Point Charge: EP Level 4 (120-155) Assessment & Plan Diagnosis / Problem List (1) Gestational diabetes: Status: Acute (2) Maternal care for low transverse scar from previous delivery: Status: Acute
== END 2025-02-26 09:19 | disposition home or self-care (01) ==
LOC: HODSOBC 08:36
PROVIDERS: Supervising Provider Obstetrics & Gynecology; Visit Provider Obstetrics & Gynecology
DX: O09.893 Supervision of other high risk pregnancies, third trimester (principal); O24.419 Gestational diabetes mellitus in pregnancy, unspecified control; O09.293 Supervision of pregnancy with other poor reproductive or obstetric history, third trimester; O34.211 Maternal care for low transverse scar from previous cesarean delivery; Z3A.37 37 weeks gestation of pregnancy
CPT/HCPCS: 99214; G0463

== ENCOUNTER 2025-03-06 10:30 | Inpatient (IN) | payer MEDICAID, SELFPAY ==
[2025-03-06] VITALS (14 sets, daily range): BP systolic 100–118; BP diastolic 47–66; PULSE 51–72; RESP 12–20; TEMP 36.5–36.9; O2SAT 97–98; BMI 33.6
[2025-03-06] MEDS: RINGERS LACTATED 1000 ML 1,000 ML 100 ML IV (11:00)
[2025-03-06 11:45] LABS: Basophils # (Auto) 0.0 Thou/mm3 (0.0-0.2); Basophils % (Auto) 0 % (0-2.5); Eosinophils # (Auto) 0.0 Thou/mm3 (0.0-0.5); Eosinophils % (Auto) 1 % (0-10); Hematocrit 36.9 % (36.0-46.0); Hemoglobin 12.5 g/dL (12.0-16.0); Immature Granulocytes Auto 0.02 Thou/mm3 (0.00-0.00); Lymphocytes # (Auto) 1.2 Thou/mm3 (1.0-4.8); Lymphocytes % (Auto) 20 % (10-50); Mean Corpuscular HGB Conc 33.9 g/dl (31.0-37.0); Mean Corpuscular Hemoglobin 31.4 pg (25.0-35.0); Mean Corpuscular Volume 93 fL (80-100); Monocytes # (Auto) 0.4 Thou/mm3 (0.0-0.8); Monocytes % (Auto) 6 % (0-12); Neutrophils # (Auto) 4.4 Thou/mm3 (1.8-7.7); Neutrophils % (Auto) 73 % (37-80); Nucleated Red Blood Cell # 0.00 Thou/mm3 (0.00-0.00); Nucleated Red Blood Cell % 0 /100 WBC (0); Platelet Count 124 Thou/mm3 (140-440); RDW Standard Deviation 51.4 fL (36.4-46.3); Red Blood Count 3.98 Miln/mm3 (4.00-5.20); White Blood Count 6.0 Thou/mm3 (3.6-11.0)
--- NOTE | 2025-03-06 11:56 | PD.LDHP ---
Documentation for date of: 03/06/25 OB Labor/Induct. HPI History of Present Illness Chief complaint: Repeat : 4 Para: 2 Term pregnancies: 2 Living children: 2 History of Abortions: Spontaneous and Elective: 1 History of Vaginal deliveries: 1 Date of last menstrual period: 06/04/24 SUN: 03/11/25 Gestational Age (weeks): 39 Gestational Age (days): 2 Gestational age based on last menstrual period: 39 History of present illness: Gardenia Dumas is a 34-year-old presenting for a repeat low transverse section at 39 weeks and 0 days gestation. She has a history of one previous section and transferred care from [facility]. The patient's was dated using ultrasound on September 04, 2024, which placed her at 12 weeks and 6 days gestation. During her , she had an abnormal one-hour glucose tolerance test, followed by 2 out of 4 abnormal results on her 3-hour glucose test. She has been managed with diet control only for gestational diabetes. The patient is GBS negative. Gardenia reports no specific complaints or concerns at this time. She had considered transferring back to [facility], but they were not accepting patients. All initial labs have been reviewed and scanned into her record. She has an obstetric history of A0 L1. Her current is at 39 weeks 0 days gestation. 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 Labs Labs: Positive: Rubella Titre, Negative: RPR, Hepatitis B, HIV, Chlamydia, Gonorrhea and Group Beta Strep and Unknown: Herpes Type 1, Herpes Type 2 and Covid-19 Meds Home Medications and Allergies Home Medications ?Medication ?Instructions ?Recorded ?Confirmed ?Type vits no.126-ferrous fum 1 tab PO QDAY 12/27/24 03/06/25 History 28 mg iron-folic acid 800 mcg tablet (Classic ) Allergies Allergy/AdvReac Type Severity Reaction Status Date / Time No Known Allergies Allergy Verified 03/06/25 11:42 OB Exam Physical Exam Vital signs: Pulse BP 54 L 113/61 03/06/25 10:57 03/06/25 10:57 Constitutional Constitutional: no acute distress Routine HEENT Exam Head: Present normocephalic and atraumatic Eye: Present EOMI and PERRL ENT: Present mucous membranes moist Routine Neck Exam Neck: Present supple and trachea midline Routine Cardiovascular Exam Cardiovascular: Present RRR Routine Abdominal Exam Abdominal: Present soft and normoactive bowel sounds Detailed Labor and Delivery Exam Dilation (cm): 0 Baseline heart rate: 145 monitor accelerations: 15x15 monitor decelerations: None terminal carman variability: Average (6-10) Routine Extremities Exam Extremities: Present full ROM Routine Skin Exam Skin: Present intact, dry and warm Routine Neurological Exam Neurological: Present alert, oriented X3 and CN II-XII intact Routine Psychiatric Exam Psychiatric: Present normal affect and normal thought process OB Results Labs 03/06/25 11:20 Labs: Short CBC 03/06/25 Range/Units 11:20 WBC 6.0 (3.6-11.0) Thou/mm3 Hgb 12.5 (12.0-16.0) g/dL Hct 36.9 (36.0-46.0) % Plt Count 124 L (140-440) Thou/mm3 OB Assessment & Plan Assessment and Plan (1) Maternal care for low transverse scar from previous delivery: Status: Acute Assessment and plan: Repeat Section: - 34-year-old at 39 weeks 0 days gestation presenting for scheduled repeat low transverse section. - History of one previous section with dated by ultrasound. - GBS negative status confirmed. Plan: - Admit to inpatient status for repeat low transverse section. - Establish IV access and initiate Lactated Ringer's solution at 125 mL/hour. - Obtain pre-operative labs: ? Complete blood count (CBC) ? Type and screen ? RPR - Initiate continuous maternal monitoring prior to surgery. - Administer pre-operative medications: ? Cefazolin 2 grams IV prior to surgery start - Verify and obtain signature on consent forms. - Scheduled procedure time: 12:30. (2) Gestational diabetes: Status: Acute Assessment and plan: Gestational Diabetes: - Abnormal one-hour glucose tolerance test with 2 out of 4 abnormal values on three-hour glucose tolerance test. - Currently managed by diet control only. Plan: - Continue current management with diet control. - Monitor blood glucose levels during admission. (3) delivery delivered: Status: Acute
[2025-03-06] MEDS: METOCLOPRAMIDE INJ 5 MG/ML VIAL 2 ML 10 MG IVP (12:21)
[2025-03-06] MEDS: FAMOTIDINE INJ 10 MG/ML VIAL 2 ML 20 MG IV (12:21)
[2025-03-06] MEDS: ceFAZolin/D5W 2 GM IV 2 GM/100 ML BAG IV (12:21)
[2025-03-06 12:25] LABS: Syphilis Nonreactive (Nonreactive)
[2025-03-06] MEDS: OXYTOCIN in NS 20 units 20 UNIT/1,000 ML BAG 125 UNIT IV ×2 (13:58→22:04)
--- NOTE | 2025-03-06 17:34 | ESOP_ITS ---
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 Identity was confirmed by double identifiers and she was placed on the operating table. Spinal anesthesia was administered and she was positioned in the supine position. The abdomen and perineum were prepped in the usual sterile fashion and a Dye catheter was placed to continuous drainage. Sterile drapes were applied. The incision site was tested for adequacy of anesthesia. A Pfannenstiel skin incision was made with a scalpel and carried to the s ubcutaneous fat up to the rectus fascia. The rectus fascia was incised on either side of the midline and the incisions were extended bilaterally. The fascia was gently dissected off the ventral surface of the rectus muscle both superiorly and inferiorly. The rectus bellies were gently in the midline and the peritoneum was identified and entered bluntly using the surgeon's finger. The peritoneal opening was now stretched to create an adequate opening for access to the uterus. Martin O-ring retractor was placed for adequate visualization. The anterior surface of the uterus was palpated. The bladder reflection was identified and a Drew Deluca low transverse uterine incision was made in the lower uterine segment taking care to avoid the bladder. Uterine entry was accomplished bluntly and the opening was stretched to create adequate room. The amniotic membranes were now ruptured and clear amniotic fluid was released. The fetus was noted to be in the vertex position. The head was gently elevated out of the maternal pelvis and single loop of nuchal cord was found around the neck. The cord was released and the rest of the shoulders and body were delivered by gentle fundal pressure. Umbilical cord was doubly clamped, divided and the infant was handed over to the waiting team. Cord gas samples were obtained. The placenta was delivered by gentle traction on the umbilical cord. The interior of the uterus was now thoroughly cleaned of all blood and debris and membranes. The hysterotomy angles were grasped by a pair of Allis clamps and the hysterotomy was closed using 1 Monocryl suture in 2 layers. The first layer was used to approximate the muscle in a running locked fashion, the second layer was used to approximate the thickness of the myometrium and uterine serosa in an imbricated manner. Once the repair was completed the hysterotomy was inspected and noted to be adequately hemostatic. The hysterotomy was once again inspected and hemostasis was noted to be satisfactory. The Martin retractor was now removed. The peritoneal edges were re approximated. The rectus muscles were re approximated. The rectus fascia was now repaired using 0 Vicryl suture in a running fashion. The subcutaneous layer was now copiously irrigated using warm normal saline. All bleeding points were cauterized using the Bovie. The subcutaneous fat was closed using 3-0 Vicryl. The skin was closed using 4-0 Monocryl in a subcuticular fashion. The skin was cleaned and a sterile dressing was applied. The patient was now undraped, the abdomen and back were thoroughly cleaned and she was transferred to the recovery room in a stable and awake condition. The patient tolerated the entire procedure well. No complications were encountered. All instrument, sponge and lap counts were correct x2. Specimen: none Estimated blood loss (ml): 600 Complications: none Surgical staff Operation Date: 03/06/25 12:15 Case Staff TECHNICAL EDITOR: Ralph Shi RN First Assistant: Kyung Saba Diagnosis Discharge Diagnosis (1) delivery delivered: Status: Acute (2) Gestational diabetes: Status: Acute Problem List Completed Was Problem List Reviewed/Reconciled?: Yes
--- NOTE | 2025-03-06 17:34 | PD.LDDELS ---
Data (Nam) Data : 4 Term: 2 Livin Abortions: Spontaneous & Theraputic: 1 Delivery Data (Nam) Labor Data Induction/Augmentation Agent: None ROM date: 03/06/25 ROM time: 12:59 Amniotic membrane rupture type: Artificial Amniotic fluid description: Light Meconium Delivery Data [place] delivery date: 03/06/25 [place] delivery time: 12:59 Placenta delivery date: 03/06/25 Placenta delivery time: 13:00 Delivered by: Adeel Delivery nurse: Romina Walter nurse: Jennifer Dos Santos Rotary Planer Set Up Operator at delivery: No Support person(s) at delivery: Delivery Method Delivery method: Low Transverse Presentation: Vertex Anesthesia Type Anesthesia Type: None Placenta Placenta delivery description: Manual Removal Cord blood sent to lab: Yes cord blood collection: Cord Blood Type Episiotomy Episiotomy description: None Umbilical Cord cord description: 3 Vessels Data (Nam) Data [place]'s gender: Female weight (gms): 3060 g Weight (pounds): 6 lbs and 11.9 ozs [place] length: 50.8 cm 1 minute: 8 5 minutes: 9
[2025-03-07 03:37] VITALS: BP 108/57; PULSE 69; RESP 16; TEMP 36.8; O2SAT 96
[2025-03-07] MEDS: KETOROLAC INJ 30 MG/ML VIAL IVP (05:48)
[2025-03-07] MEDS: SIMETHICONE 80 MG CHEW PO (05:48)
[2025-03-07 08:00] VITALS: BP 110/61; PULSE 75; RESP 18; TEMP 37; O2SAT 96
[2025-03-07 08:02] LABS: Basophils # (Auto) 0.0 Thou/mm3 (0.0-0.2); Basophils % (Auto) 0 % (0-2.5); Eosinophils # (Auto) 0.0 Thou/mm3 (0.0-0.5); Eosinophils % (Auto) 0 % (0-10); Hematocrit 36.1 % (36.0-46.0); Hemoglobin 12.2 g/dL (12.0-16.0); Immature Granulocytes Auto 0.02 Thou/mm3 (0.00-0.00); Lymphocytes # (Auto) 0.8 Thou/mm3 (1.0-4.8); Lymphocytes % (Auto) 8 % (10-50); Mean Corpuscular HGB Conc 33.8 g/dl (31.0-37.0); Mean Corpuscular Hemoglobin 31.6 pg (25.0-35.0); Mean Corpuscular Volume 94 fL (80-100); Monocytes # (Auto) 0.4 Thou/mm3 (0.0-0.8); Monocytes % (Auto) 4 % (0-12); Neutrophils # (Auto) 8.3 Thou/mm3 (1.8-7.7); Neutrophils % (Auto) 87 % (37-80); Nucleated Red Blood Cell # 0.00 Thou/mm3 (0.00-0.00); Nucleated Red Blood Cell % 0 /100 WBC (0); Platelet Count 108 Thou/mm3 (140-440); RDW Standard Deviation 52.4 fL (36.4-46.3); Red Blood Count 3.86 Miln/mm3 (4.00-5.20); White Blood Count 9.5 Thou/mm3 (3.6-11.0)
--- NOTE | 2025-03-07 08:32 | PD.LDDS ---
DS: Providers Provider Date of admission: 03/06/25 10:30 Primary care physician: Physician No Primary/Family Admitting Provider: Randal Denis MD Attending Provider on Admission: Stna Mireles MD Consults: 03/06/25 13:50 Referral Routine Comment: Attending Provider on DC: Stan Mireles MD Discharging Provider: Stan Mireles MD DS: Diagnosis Problem List Completed Was Problem List Reviewed/Reconciled?: Yes Summary/Hosp Course Brief History: Gardenia Dumas is a 34-year-old presenting for a repeat low transverse section at 39 weeks and 0 days gestation. She has a history of one previous section and transferred care from [facility]. The patient's was dated using ultrasound on September 04, 2024, which placed her at 12 weeks and 6 days gestation. During her , she had an abnormal one-hour glucose tolerance test, followed by 2 out of 4 abnormal results on her 3-hour glucose test. She has been managed with diet control only for gestational diabetes. The patient is GBS negative. Gardenia reports no specific complaints or concerns at this time. She had considered transferring back to [facility], but they were not accepting patients. All initial labs have been reviewed and scanned into her record. She has an obstetric history of A0 L1. Her current is at 39 weeks 0 days gestation. 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 ROS: Negative except as stated above, limited to [employer] and pertinent complaints. Peripartum Data Delivery Method: Low Transverse Episiotomy Description: None Procedures: Procedures Operation Date: 03/06/25 12:15 Actual Procedure Side Surgeon p in OB Randal Denis MD Time Spent with Patient Time attestation: Total time spent providing and/or coordinating discharge services: Exam Vital Signs Temp Pulse Resp BP Pulse Ox O2 Del Method 98.3 F 69 16 108/57 L 96 Room Air 03/07/25 03:37 03/07/25 03:37 03/07/25 03:37 03/07/25 03:37 03/07/25 03:37 03/07/25 03:37 Discharge Plan Plan Patient Disposition: HOME (Self Care) Patient condition on transfer: Stable Prescriptions/Referrals Prescriptions/Med Rec: New hydrocodone-acetaminophen 5-325 mg tablet 1 tab PO Q6H MDD 4 PRN (Reason: pain) 7 Days Qty: 28 0RF docusate sodium [Stool Softener] 100 mg capsule 100 mg PO QDAY 30 Days Qty: 30 0RF ibuprofen 600 mg tablet 600 mg PO Q6H MDD 4 PRN (Reason: fever or pain) 10 Days Qty: 40 0RF Continued Classic 28 mg iron- 800 mcg tablet 1 tab PO QDAY (DME) blood-glucose meter Kit See Rx Instructions .MEDSUPPLY Qty: 1 0RF Rx Instructions: As directed (DME) lancets 21 gauge misc See Rx Instructions .MEDSUPPLY Qty: 100 0RF Rx Instructions: As directed, 4 times a day (DME) Blood Glucose Test Strip See Rx Instructions .MEDSUPPLY Qty: 100 0RF Rx Instructions: As directed, 4 times a day Referrals: Randal Denis MD [Physician] - No Primary/Family,Physician [Primary Care Provider] - Patient/Caregiver Discharge Instructions Education Materials: C Section Dc Print Language: Congolese Stand Alone Forms: La Award Info., Patient Portal Info Letter Planned Discharge Date 03/08/25
[2025-03-07] MEDS: DOCUSATE SOD 100 MG CAPSULE PO (09:17)
[2025-03-07 12:00] VITALS: BP 112/62; PULSE 60; RESP 16; TEMP 36.9; O2SAT 96
[2025-03-07 16:00] VITALS: BP 110/60; PULSE 69; RESP 16; TEMP 37.1; O2SAT 96
[2025-03-07] MEDS: HYDROcodone/APAP 5/325 TABLET 1 TAB PO (18:16)
[2025-03-07 19:50] VITALS: BP 105/59; PULSE 70; RESP 17; TEMP 37.1; O2SAT 97
[2025-03-08 04:00] VITALS: BP 105/61; PULSE 60; RESP 16; TEMP 36.7; O2SAT 97
[2025-03-08] MEDS: IBUPROFEN TAB 400 MG TABLET 800 MG PO (04:46)
--- NOTE | 2025-03-08 07:13 | PD.LDPPPRG ---
Subjective Subjective Interval history: Patient denies any prior complaint. She is voiding and ambulating and tolerating a regular diet. She denies any excessive vaginal bleeding. She denies any dizziness or lightheadedness. She denies any nausea or vomiting. She is passing flatus. She denies any chest pain palpitation shortness of breath or lower extremity pain. Exam Vital Signs Temp Pulse Resp BP Pulse Ox O2 Del Method 98.0 F 60 16 105/61 97 Room Air 03/08/25 04:00 03/08/25 04:00 03/08/25 04:00 03/08/25 04:00 03/08/25 04:00 03/08/25 04:00 Routine Respiratory Exam Comments: Clear to auscultation bilaterally Routine Cardiovascular Exam Comments: Regular rate and rhythm Routine Abdominal Exam Comments: Dressing dry and intact fundus is firm nondistended Routine Extremities Exam Comments: Nontender Objective Labs 03/07/25 07:40 Labs: Laboratory Results - last 24 hr 03/07/25 07:40 WBC 9.5 D RBC 3.86 L Hgb 12.2 Hct 36.1 MCV 94 MCH 31.6 MCHC 33.8 RDW Std Deviation 52.4 H Plt Count 108 L Neut % (Auto) 87 H Lymph % (Auto) 8 L [place] % (Auto) 4 Eos % (Auto) 0 Baso % (Auto) 0 Neut # (Auto) 8.3 H Lymph # (Auto) 0.8 L [place] # (Auto) 0.4 Eos # (Auto) 0.0 Baso # (Auto) 0.0 Immature Gran # (Auto) 0.02 H Absolute Nucleated RBC 0.00 Immature Gran % 0 Nucleated RBC % 0 Impressions Impression: Postop day #1 status post delivery Remove dressing Encourage ambulation DC IV support Assessment & Plan Problem List (1) delivery delivered: Status: Acute (2) Gestational diabetes: Status: Acute Time Spent With Patient Time: Total time spent is greater than 50% in coordination of care (as documented) at patient's floor/unit and/or counseling patient:
[2025-03-08 07:20] VITALS: BP 102/62; PULSE 56; RESP 18; TEMP 36.7; O2SAT 97
--- NOTE | 2025-03-08 07:36 | PD.LDPPPRG ---
Subjective Subjective Interval history: Patient denies any prior complaint. She is voiding and ambulating and tolerating a regular diet. She denies any excessive vaginal bleeding. She denies any dizziness or lightheadedness. She denies any nausea or vomiting. She is passing flatus. She denies any chest pain palpitation shortness of breath or lower extremity pain. Exam Vital Signs Temp Pulse Resp BP Pulse Ox O2 Del Method 98.0 F 60 16 105/61 97 Room Air 03/08/25 04:00 03/08/25 04:00 03/08/25 04:00 03/08/25 04:00 03/08/25 04:00 03/08/25 04:00 Routine Abdominal Exam Comments: Incision clear and intact Routine Extremities Exam Comments: Nontender Objective Labs 03/07/25 07:40 Labs: Laboratory Results - last 24 hr 03/07/25 07:40 WBC 9.5 D RBC 3.86 L Hgb 12.2 Hct 36.1 MCV 94 MCH 31.6 MCHC 33.8 RDW Std Deviation 52.4 H Plt Count 108 L Neut % (Auto) 87 H Lymph % (Auto) 8 L [place] % (Auto) 4 Eos % (Auto) 0 Baso % (Auto) 0 Neut # (Auto) 8.3 H Lymph # (Auto) 0.8 L [place] # (Auto) 0.4 Eos # (Auto) 0.0 Baso # (Auto) 0.0 Immature Gran # (Auto) 0.02 H Absolute Nucleated RBC 0.00 Immature Gran % 0 Nucleated RBC % 0 Impressions Impression: Postop day #2 status post delivery Discharge home Discharge instructions given Follow-up in the office in 1 week Assessment & Plan Problem List (1) delivery delivered: Status: Acute (2) Gestational diabetes: Status: Acute Time Spent With Patient Time: Total time spent is greater than 50% in coordination of care (as documented) at patient's floor/unit and/or counseling patient:
[2025-03-08] MEDS: DOCUSATE SOD 100 MG CAPSULE PO (08:48)
[2025-03-08] MEDS: HYDROcodone/APAP 5/325 TABLET 1 TAB PO (09:00)
== END 2025-03-08 12:30 | disposition home or self-care (01) | DRG 540 ==
LOC: S4SX 10:41 → S4NX 13:15
PROVIDERS: Admitting Provider Obstetrics & Gynecology; Visit Provider Specialist
PROC: 10D00Z1 Extraction of Products of Conception, Low, Open Approach (ICD-10-PCS; CPT 59514; principal; 2025-03-06 12:00)
DX: O34.211 Maternal care for low transverse scar from previous cesarean delivery (principal); O24.420 Gestational diabetes mellitus in childbirth, diet controlled; O69.81X0 Labor and delivery complicated by cord around neck, without compression, not applicable or unspecified; O77.0 Labor and delivery complicated by meconium in amniotic fluid; Z37.0 Single live birth; Z3A.39 39 weeks gestation of pregnancy
CPT/HCPCS: 36415; 59409; 85025; 86780; 86850; 86900; 86901; 94762; A4217; A4314; A4649; J0689; J1885; J2274; J2371; J2590; J2765; J3010; J3490; J7120; A9270; J2270

== ENCOUNTER 2025-03-26 09:05 | Outpatient (AMB) | payer MEDICAID, SELFPAY ==
--- NOTE | 2025-03-26 09:13 | AMBOBPPN_ITS ---
Vital Signs 03/26/25 09:14 Height 1.57 m Height Method Stated Weight 76.884 kg Weight Measurement Method Standing Scale BMI 31.1 BP 108/69 Blood Pressure Source Automatic Cuff Blood Pressure Location Left Upper Arm Position Sitting Respiration 16 Pulse 68 Pulse Source Monitor Temp 98.2 F Temp Source Oral Pulse Oximetry (%) 98 Oxygen Delivery Method Room Air Allergies/Home Meds Allergies & Medications Allergies No Known Allergies Allergy (Verified 03/26/25 09:14) Medication Reconciliation vits no.126-ferrous fum 28 mg iron-folic acid 800 mcg tablet (Classic ) 1 tab PO QDAY 12/27/24 [History Confirmed 03/26/25] blood-glucose meter #1 ea 01/31/25 [Rx Confirmed 03/26/25] blood sugar diagnostic (Blood Glucose Test strips) #100 ea 02/11/25 [Rx Confirmed 03/26/25] lancets 21 gauge #100 ea 02/11/25 [Rx Confirmed 03/26/25] docusate sodium 100 mg capsule (Stool Softener) 100 mg PO QDAY 30 days #30 caps 03/07/25 [Rx Confirmed 03/26/25] Intake Visit Data Collection New Patient or Established: Established Patient (seen at [facility] within 3 years) Reason for Visit:: Seen by Clinical Staff ONLY (RN/MA): No Food Stylist Required: No Do You Feel Safe at Home: Yes Authorities Contacted: N/A PCP or OBGYN visit in last 3 months: Yes Date of Last PCP or OBGYN visit: 03/08/25 Hx Now: No Are you currently on any form of Control: No Pain Present Currently: No Pain Scale Used: Neito-Connell/Numerical Pain scale:: 0 Smoking Status Smoking Status: Never smoker MISSION 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: Past Medical History Past Medical History: No Hx Neurological Disorders, No Hx Breast Cancer, No Hx Cardiac Disorders, No Hx Hypertension, No Hx Cancer, No Hx Blood Disorders, No Hx Anemia, No Hx Gastrointestinal Disorders, No Hx Renal Disease, No Hx Diabetes Mellitus Type 1, No Hx Diabetes Mellitus Type 2 and No Hx Polycystic Ovarian Syndrome Questionnaires Covid-19 Vaccine Questionnaire Has patient been vacinated for Covid-19 Have you been vacinated for Covid-19: Yes Social History Living Situation History Marital Status: Lives With: Family Housing: House Tobacco History Smoking Status: Never smoker Second Hand Smoke Exposure: No Alcohol History Alcohol Intake: Never Domestic Abuse History Do You Feel Safe at Home: Yes EPDS - PP Depression Screening [place] Pospartum Depression Screen I have been able to laugh and see the funny side of things: (0) As much as I always could I have looked forward with enjoyment to things: (0) As much as I ever did I have blamed myself unnecessarily when things went wrong: (0) No, never I have been anxious or worried for no good reason: (0) No, not at all I have felt scared or panicky for no very good reason: (0) No, not at all Things have been getting on top of me: (0) No, I have been coping as well as ever I have been so unhappy that I have had difficulty sleeping: (0) No, not at all I have felt sad or miserable: (0) No, not at all I have been so unhappy that I have been crying: (0) No, never The thought of harming myself has occurred to me: (0) Never Total Score: EPDS Score: Referral is indicated for score of 9 or more, suicidal, or if provider believes patient is depressed regardless of score.: 0 EPDS completed yes Care OB Visit Log OB Flowsheet Initial Weight: Not Recorded Date -?-?-?-?-?-?-?-?-?-?-?-?- EGA Weight BP Alb Glu CTX Pres Fundal ht FHR Mov Dilation Station Effacement Hx Notes Visit Note 10/28/24 -?-?-?-?-?-?-?-?-?-?-?-?- 20w 4d 78.528 kg 107/66 145 active 34-year-old at 20 weeks and 6 days gestation, presents for transfer of care from [facility]. - Ultrasound (09/04/2024): - First trimester gestation - Single gestational sac - Gestational age: 12 weeks and 6 days . Plan: - Order anatomy ultrasound at [facility] between 20-22 weeks gestation - Assess anatomy and previous ce sarean section scar - Evaluate placental position - Review lab results from previous clini c once patient brings records - Schedule glucose tolerance test for di abetes screening at next appointment - Discuss delivery options: - Inform patient that current hospital does not permit - If vaginal delivery desired, plan to continue care until 35-36 weeks, then transfer to [facility] or [place] - Advise on sexual activity based on [facility]: - If placenta remains low, avoid inter course - If placental position resolves, valentin desai for sexual activity - Continue vitamins 11/26/24 -?-?-?-?-?-?-?-?-?-?-?-?- 24w 5d 80.002 kg 107/61 at 24 weeks and 6 days gestation, presents for routine care. Reports pruritus in genital area without discharge or OTC treatment. FM+. Transferred care from [place], this is second visit. Awaiting MFM ultrasound. FHT 145 bpm. Plan: Glucose tolerance test (fasting) Antifungal cream to [facility] Await MFM ultrasound results FU in 4 weeks precautions 12/27/24 -?-?-?-?-?-?-?-?-?-?-?-?- 29w 1d 82.157 kg 110/66 occasional cephalic 29 145 at 29w1d, transferred from [place]. Recent vaginitis treated with clotrimazole. Labs: Hgb 12.4, Hct 39.1, platelets 145. Abnormal 1h GTT at 155. MFM US pending. Plan: Schedule 3h GTT, monitor platelets, await MFM results. 02/07/25 -?-?-?-?-?-?-?-?-?-?-?-?- 35w 1d 82.611 kg 110/68 absent breech 35 145 active at 35w1d with diet-controlled GDM, breech fetus, prior C/S, improved energy and wt loss; FHR WNL, placenta now anterior and clear of OS per 32w MFM. Plan: C/S scheduled 03/06 @ 12:30, GBS swab done, RX for glucose supplies, weekly visits, review glucose logs next visit, pt exploring transfer to [place]. 02/26/25 -?-?-?-?-?-?-?-?-?-?-?-?- 37w 6d 83.234 kg 110/68 absent breech 38 154 active The patient appears to be progressing normally in her with no reported complications or concerns. - Scheduled for repeat on March 06, 2025 at 39 weeks gestation - Patient to check in at 10:00 AM, surge ry scheduled for 12:30 PM - NPO after midnight the night before quintero nahid - Preoperative procedures: change into g own, area cleaning, blood work - to be performed by Dr. Denis - Sutures will be absorbable, placed ins marianna the skin with edges joined by glue - Tape to be kept on incision site for 1 0 days, then removed by physician - [id number] contact with baby possibl e after delivery, either with mother or father - Two-hour recovery period post-surgery before visitors allowed - Baby to room-in with mother if no comp lications arise SUN Calculator Estimated Delivery Date Method Current WG Current Estimate 03/13/25 Ultrasound #1 42w 3d Other Estimates 03/11/25 LMP (Certain) 42w 5d Expected Delivery Route/Plan Repeat scheduled for March 06, 2025 at 12:30 PM Specific Issue/Plans Laboratory, Imaging, and Diagnostic Test Results - [facility] Ultrasound (01/18/2025): - Gestational age: 32 weeks 0 days - Estimated weight: 1874 grams - Amniotic fluid: Normal - anatomy: Grossly normal - Placenta: Anterior, no evidence of previa - presentation: Shaun breech - Uterus and adnexa: Normal Notes Visit Date: 02/07/25 Last Updated by: Randal Denis MD Problem List - , 35 weeks and 1 day - Gestational diabetes mellitus - Breech presentation - Previous delivery - 4, para 2 HPI Interval History: Gardenia Dumas presents for a follow-up visit after undergoing a section on March 06, 2020. She is approximately 20 days . The patient reports that her recovery is progressing well. She is currently without any mentioned complications. Gardenia states that her partner is assisting with childcare, particularly with their two older daughters who are currently staying with grandparents. The patient does not report any specific complaints or concerns regarding her recovery or the incision site. Gardenia appears to be adhering to care instructions, including wearing the recommended support garment. She has not reported any difficulties with basic daily activities such as gentle walking or cooking, which she has been advised are permissible at this stage of recovery. She has a history of section with the most recent being on March 06, 2020. She is a female with an obstetric history of L3. She is and lives with her and three children including two older daughters and a . ROS: Negative except as stated above, limited to MISSION ANALYST and pertinent complaints. Exam Narrative Physical exam: - Abdominal: Incision site from examined. Skin has healed well. No signs of infection or complications noted. Office Procedures OB Clinic LOC & Office Proc's Nursing/Assessment Patient Status: Established Patient OB Clinic Nursing Assessment: Medication Reconciliation, Update PMH in EMR and Vital Signs OB Clinic Coordination of Care: Education Complex Pt/Fam, Consent,records obtained, informed consent, Lab and Imaging orders, Results/Orders obtained and Staff clarify orders Established Patient Charge Established Patient Point Assignment: 85 Post Follow-up Visit Post Follow up Visit: Yes Assessment & Plan Diagnosis / Problem List (1) delivery delivered: Status: Acute (2) Encounter for routine follow-up: Status: Acute Plan status post section: - Patient is 20 days post section. - Incision site has healed well with no signs of infection or complications. - Patient reports is going well. Plan: - Remove surgical tape from incision site. - Continue to wear abdominal binder for 6 weeks post- section. - Activity restrictions: ? Can drive ? Can walk up to 40-45 minutes ? Avoid lifting anything heavier than a car seat ? Avoid climbing stairs excessively ? Avoid vacuuming and grooming activities ? Gentle walking and cooking are permitted - Follow-up appointment in one month. - Discuss control options at next visit.
[2025-03-26 09:14] VITALS: BP 108/69; PULSE 68; RESP 16; TEMP 36.8; O2SAT 98; BMI 31.1
== END 2025-03-26 09:43 | disposition home or self-care (01) ==
LOC: HODSOBC 09:05
PROVIDERS: Supervising Provider Obstetrics & Gynecology; Visit Provider Obstetrics & Gynecology
DX: Z39.2 Encounter for routine postpartum follow-up (principal)
CPT/HCPCS: 59430; 99213; G0463